=== PATIENT | male | born 1985 | race Caucasian/White ===

== ENCOUNTER 2016-10-17 11:31 | Emergency (ER) | payer BC ==
[2016-10-17] MEDS ORDERED: SODIUM CHLORIDE 0.9% 1,000 ML ONE (13:00)
[2016-10-17] MEDS ORDERED: PEN G BENZ 1.2M UNITS/2 ML SYR IM ONE (13:05)
== END 2016-10-17 15:11 | disposition home or self-care (01) ==
LOC: ER 11:31
CPT/HCPCS: 36415; 72072; 80048; 85025; 87880; 96360; 96372